=== PATIENT | male | born 1930 | race Caucasian/White ===

== ENCOUNTER 2017-01-28 21:31 | Inpatient (IN) | payer OTHER ==
[~2017-01-28] VITALS: Ht 175.3 cm; Wt 90.9 kg
--- NOTE | ~2017-01-28 | H ---
[facility] [place] [address] [place] [address] HISTORY AND PHYSICAL Name: JOYCE SOLIS Room #: 202-P [facility] IN M.R.#: [id number] Admission: 01/29/17 Attend Phys: Jj De La Vega MD Discharge: Date of : 30 Report #: [id number] THIS REPORT FOR: //name// CC: Jj De La Vega DATE OF SERVICE: 01/29/2017 CHIEF COMPLAINT: Fall and left elbow injury. HISTORY OF PRESENT ILLNESS: The patient is an 86-year-old male, well known to me, who states he was in his home, and he tripped when he was walking, hit his head and his left arm. He was laid on the floor for several hours until he was able to get up and get assistance. He was complaining of left elbow pain. He states, he did not lose consciousness. He had no chest pain prior to the fall. PAST MEDICAL HISTORY: Significant for: 1. Diabetes mellitus, insulin requiring. 2. Hypertension. 3. Coronary artery disease, prior angioplasty. 4. Prior history of gastric ulcer and bleeding. 5. Reflux. 6. Hyperlipidemia. 7. Dysphagia with esophageal strictures. 8. Prior falls. 9. Prior abdominal hernia. 10. Hyperlipidemia. 11. Depression with anxiety. 12. BPH. MEDICATIONS: NovoLog sliding scale, Plavix 75 mg a day, folic acid 1 mg a day, Prozac 20 mg a day, Lipitor 40 mg a day, Lopressor 25 mg a day, fish oil 1 gram a day, Imdur 30 mg a day, ranitidine 150 mg b.i.d., tamsulosin 0.4 mg at bedtime, multivitamin daily, B-complex daily, Levemir 40 units at bedtime. ALLERGIES: ZOLPIDEM. SOCIAL HISTORY: Prior smoker but not current. Alcohol, prior user, but not current. No recreational drugs. REVIEW OF SYSTEMS: CONSTITUTIONAL: The patient denies any fever or chills. HEENT: Positive for headache from the fall. No new visual changes. NECK: No neck pain or tightness. CHEST: He denies chest pains or tightness in his chest. GASTROINTESTINAL: No nausea, vomiting, diarrhea, or constipation. GENITOURINARY: No burning or frequency. [address] [address] HISTORY AND PHYSICAL Name: JOYCE SOLIS Room #: 202-P [facility].#: [id number] Admission: 01/29/17 Attend Phys: Jj De La Vega MD Discharge: Date of : 30 Report #: [id number] EXTREMITIES: He has left elbow pain. SKIN: He has bruising on the face with sight laceration on the left eyebrow, bruising over the elbow. NEUROLOGIC: He has no focal weakness. No focal numbness. PHYSICAL EXAMINATION: VITAL SIGNS: Blood pressure 154/89, pulse is 83, respiratory rate 11, O2 sats 97%. He is afebrile. GENERAL: The patient is awake and alert, in no acute distress. HEENT: His mucous membranes are dry. NECK: Supple, without adenopathy, thyromegaly, or bruits. CHEST: Clear to auscultation anteriorly. CARDIOVASCULAR: He has regular rate and rhythm without murmur, no S4. ABDOMEN: Soft, nondistended, and nontender. No masses. Bowel sounds are active. EXTREMITIES: Left arm is in the splint. The hand is able to be moved independently. His pulses are intact. Cap refill is less than 2 seconds. Sensation is normal. SKIN: Laceration above the left eyebrow. This is not actively bleeding, and bruise in the left side of face. DIAGNOSTIC DATA: X-ray of the elbow shows oblique transcondylar fracture involving the distal humerus with multiple fragments. LABORATORY DATA: Sodium is 142, potassium is 4.8, chloride is 108, bicarbonate 26, BUN 28, creatinine 1.2, glucose 144. WBCs 12.0, hemoglobin 12.0, hematocrit 37.2, platelet count 200, 89 segs, 2 bands, [address] scan of the spine shows normal alignment. No fractures with some moderate degenerative changes. CT scan of the head shows atrophy with no acute process. CT scan of the elbow confirms the fractures above with fragments as noted. ASSESSMENT: 1. Left distal humerus fracture. Ortho has seen and will take to the OR tomorrow on 01/30/2017. 2. Closed head injury. Seems to be doing well. We will monitor symptoms. 3. Diabetes mellitus, insulin requiring. We will resume his insulin. We will start his diet today. 4. Coronary artery disease, currently stable. No chest pain. We will resume his current medications. We are going to hold his Plavix in light of the pending surgery. Otherwise resume his medications. [facility] [address] [place] [address] HISTORY AND PHYSICAL Name: JOYCE SOLIS Room #: 202-P AD[facility] IN M.R.#: [id number] Admission: 01/29/17 Attend Phys: Jj De La Vega MD Discharge: Date of : 30 Report #: [id number] 5. Hyperlipidemia. Resume medications. 6. Frequent falls. We will start PT and OT as soon as possible. By: [id number] Jj De La Vega MD /nt
[~2017-01-28 21:31] MED LIST: ACTOS 45 MG45 M1 PO; ADULT LOW DOSE81 MG PO; ALBUTEROL INH INH; ALEVE220 M1 PO; B COMPLETE1 EAC1 PO; B-COMPLEX WITH1 EAC3 PO; B12INJ PO; CALCIUM CITRAT480 GM PO; CLOPIDOGREL75 MG PO; COMBIVENT INH; CRESTOR40 MG PO; CYANOCOBALAM1000 MCG PO; DAILY VITE1 EACH PO; FISH OIL + D31 EACH; FISH OIL 1,0001 EAC5 PO; FISHOIL PO; FLUOXETINE HCL40 MG PO; FOLIC ACID1 MG PO; GLUCOPHAGE1000 MG PO; GLYBURIDE 5 MG T5 M1 PO; HYDROCODON-ACE1 EAC8 PO; HYDROCODONE-AP1 EAC6 PO; IMDUR 30 MG TAB30 M1 PO; IMDUR 30 MG TAB30 MG PO; IRON PO; LANTUS SQ; LANTUS SUBQ; LEVAQUIN 500 M500 M2 PO; LEVAQUIN 500 M500 M4 PO; LIPITOR10 MG; LIPITOR40 MG PO; LISINOPRIL10 MG PO; LISINOPRIL30 MG PO; LOPRESSOR25 PO; MECLIZINE 25 MG25 M1 PO; METOPROLOL SUCC25 M1 PO; MIRALAX255 GM PO; MULTIVITAMINS PO; NORCO 10-325 T1 EACH PO; NORCO 5-325 TA1 EACH PO; NOVOLOG100 UNIT/1; NOVOLOG100 UNIT/1 SQ; OMEPRAZOLE20 M2 PO; OSELB75 PO; PERCOCET 10-321 EACH PO; PREDNISONE 10 M10 MG PO; PROTONIX40 M2; PROTONIX40 M2 PO; PROZAC 20 MG20 M1 PO; PROZAC 20 MG20 MG PO; PROZAC40 MG PO; RANITIDINE 150150 M1 PO; SUPER B COMPLE1 EAC2 PO; SYMBICORT160 MCG/4. INH; TAMSULOSIN HCL0.4 M1 PO; TAMSULOSIN HCL0.4 MG PO; TRAMADOL 50 MG50 MG PO; ULTRAM 50MG TAB50 MG PO; VICTOZA0.6 MG/0.1 SUBQ; VOLTAREN GEL 1100 G1 TOP; ZESTRIL5 MG PO; ZPAK PO
[2017-01-28 21:33] VITALS: BP 154/89
[2017-01-28] MEDS ORDERED: LEVEMIR SUBQ (21:43)
[2017-01-28 22:13] LABS: HEMATOCRIT 37.2 % (42.0-52.0); MANUAL DIFF YES; MCH 26.1 pg (26.0-34.0); MCHC 32.3 g/dL (28.0-37.0); MCV 80.6 fL (80.0-100.0); PLATELET COUNT 200 thou/uL (150-400); RBC 4.62 mil/uL (4.50-6.00); RDW 17.6 % (10.5-14.5)
[2017-01-28 22:23] LABS: CALCIUM 8.8 mg/dL (8.5-10.1); CREATININE 1.2 mg/dL (0.6-1.3); POTASSIUM 4.8 mmol/L (3.5-5.1)
[2017-01-28 22:34] LABS: ABSOLUTE NEUTROPHILS 10.9 thou/uL (1.4-8.2); TOTAL CELL COUNT 100
[2017-01-28 22:35] LABS: ANISOCYTOSIS SLIGHT; OVALOCYTES 1+; POIKILOCYTOSIS SLIGHT
[2017-01-29] MEDS ORDERED: HYDROCODONE-AP1 EAC6 PO (00:37)
[2017-01-29 02:37] VITALS: BP 133/83
[2017-01-29 02:50] VITALS: BP 154/90
[2017-01-29 08:20] VITALS: BP 156/78
[2017-01-29 11:58] VITALS: BP 137/94
[2017-01-29 15:26] VITALS: BP 120/70
[2017-01-30 03:23] VITALS: BP 145/78
[2017-01-30 07:00] VITALS: BP 160/79
[2017-01-30 12:10] VITALS: BP 89/59
[2017-01-30 16:45] VITALS: BP 87/40
[2017-01-30 19:11] VITALS: BP 110/70
[2017-01-30 23:55] VITALS: BP 126/67
[2017-01-31 04:22] VITALS: BP 158/91
[2017-01-31 07:30] VITALS: BP 130/66
[2017-01-31 12:05] VITALS: BP 127/55
[2017-01-31 16:10] VITALS: BP 108/63
[2017-01-31 19:17] VITALS: BP 116/69
[2017-02-01 03:59] VITALS: BP 126/73
[2017-02-01 07:05] VITALS: BP 154/90
[2017-02-01 10:20] VITALS: BP 154/90
[2017-02-01 12:10] VITALS: BP 111/69
[2017-02-01 13:31] VITALS: BP 154/90
[2017-02-01 14:48] VITALS: BP 154/90
== END 2017-02-01 14:54 | disposition home health service (06) | DRG 563 ==
LOC: ER 21:31 → EROBS 01-29 01:23 → 2N 01-29 01:23
PROVIDERS: Nurse Practitioner
DX: S42.412A Displaced simple supracondylar fracture without intercondylar fracture of left humerus, initial encounter for closed fracture (principal); E11.9 Type 2 diabetes mellitus without complications; E78.5 Hyperlipidemia, unspecified; K21.9 Gastro-esophageal reflux disease without esophagitis; F32.9 Major depressive disorder, single episode, unspecified; F41.9 Anxiety disorder, unspecified; N40.0 Benign prostatic hyperplasia without lower urinary tract symptoms; I25.10 Atherosclerotic heart disease of native coronary artery without angina pectoris; S00.93XA Contusion of unspecified part of head, initial encounter; I10 Essential (primary) hypertension; S00.10XA Contusion of unspecified eyelid and periocular area, initial encounter; R04.0 Epistaxis; I25.2 Old myocardial infarction; Z88.8 Allergy status to other drugs, medicaments and biological substances; Z87.01 Personal history of pneumonia (recurrent); Z87.891 Personal history of nicotine dependence; Z79.899 Other long term (current) drug therapy; Z79.4 Long term (current) use of insulin; W18.39XA Other fall on same level, initial encounter; Y93.89 Activity, other specified; Y92.89 Other specified places as the place of occurrence of the external cause; Y99.8 Other external cause status
CPT/HCPCS: 10081